=== PATIENT | male | born 1955 | race Caucasian/White ===

== ENCOUNTER 2020-01-08 16:34 | Emergency (ER) | payer MEDICAID ==
[~2020-01-08] VITALS: Ht 172.7 cm; Wt 66.2 kg
[2020-01-08 16:40] VITALS: BP 119/80
--- NOTE | 2020-01-08 17:49 | NUR ---
AVP: PT AMBULATORY WITH STEADY GAIT TO ROOM AT THIS TIME. PT ASKED TO CHANGE INTO GOWN. RUT
--- NOTE | 2020-01-08 17:58 | NUR ---
FIRST CONTACT WITH PT. PT HERE FOR [facility] WOUNDS. PT HAS NUMEROUS LESION ABOUT QUARTER SIZED ON LEGS. PT REPORTS VERY PAINFUL. PT REPORTS THAT HE HAD A SPIDER BITE LAST YEAR TO RIGHT LEG THAT GOT INFECTED AND KEPT HIM IN THE HOSPITAL FOR A MONTH. PT HAS HX OF PSORIASIS. PT'S AOX4. RESPS EVEN AND UNLABORED. DENIES ANY OTHER SX.
[2020-01-08] MEDS ORDERED: SULFAMETH./TRIMETHOPRIM DS 800MG/160MG TABLET PO ONE (18:30)
[2020-01-08] MEDS ORDERED: CEPHALEXIN 500 MG CAPSULE PO ONE (18:30)
[2020-01-08] MEDS ORDERED: CEPHALEXIN 500 MG CAPSULE ONE (18:31)
[2020-01-08] MEDS ORDERED: SULFAMETH./TRIMETHOPRIM DS 800MG/160MG TABLET ONE (18:31)
--- NOTE | 2020-01-08 18:34 | NUR ---
pt medicated per emar. pt tolerated well.
--- NOTE | 2020-01-08 18:56 | NUR ---
Patient given discharge instructions and they have confirmed that they understand the instructions. Patient ambulatory with steady gait.
== END 2020-01-08 18:57 | disposition home or self-care (01) ==
LOC: ED 18:00
DX: L03.115 Cellulitis of right lower limb (principal); I25.10 Atherosclerotic heart disease of native coronary artery without angina pectoris; I25.2 Old myocardial infarction; Z95.0 Presence of cardiac pacemaker
CPT/HCPCS: 99283